=== PATIENT | female | born 2000 | race Caucasian/White ===

== ENCOUNTER 2025-07-29 11:59 | Emergency (ER) | payer OTHER ==
[~2025-07-29] VITALS: Ht 162.6 cm; Wt 87.5 kg
[2025-07-29 12:02] VITALS: BP 109/63; TEMP 98.3; O2SAT 100
[2025-07-29] MEDS ORDERED: [UNRECOGNIZED DRUG - CODE] TOP (12:42)
== END 2025-07-29 12:52 | disposition home or self-care (01) ==
LOC: M ED 11:59
DX: L20.9 Atopic dermatitis, unspecified (principal); Z91.041 Radiographic dye allergy status; Z79.899 Other long term (current) drug therapy